=== PATIENT | male | born 1965 | race Two or more races ===

== ENCOUNTER 2019-06-09 00:01 | Inpatient (IN) | payer OTHER ==
[~2019-06-09] VITALS: Ht 170.2 cm; Wt 80.7 kg
--- NOTE | 2019-06-09 00:15 | NUR ---
MS KITCHEN SUPERVISOR NOTES Patient came to unit from [facility] for GI bleed. Patient is alert, oriented x 4. Breathing even and unlabored. Not in any distress, on room air. Patient has RAC g#18, intact and patent. Skin is intact. Patient denies smoking and recreational drug use, and drinks occasionally. Oriented to call light, placed within easy reach. Bed in low, locked position. Belongings checked by TIFFANY Mcnamara. Will continue to monitor accordingly
[2019-06-09] MEDS ORDERED: CETI-102 PO (00:27)
[2019-06-09] MEDS ORDERED: FLUT9.9S NS (00:27)
[2019-06-09 00:30] VITALS: BP 143/101
[2019-06-09] MEDS ORDERED: FERR325T23 PO (01:02)
[2019-06-09] MEDS ORDERED: DOCU-141 PO (01:02)
[2019-06-09] MEDS ORDERED: PSYL3.4P6 PO (01:02)
--- NOTE | 2019-06-09 02:47 | NUR ---
RN NOTES Diet order received. Patient for clear liquids. Order noted and carried out
[2019-06-09] MEDS ORDERED: Z GUARD REMEDY 2 OZ OINT TP PRN (03:00)
[2019-06-09] MEDS ORDERED: MORPHINE SULFATE INJ 2 MG/ML DISP.SYRIN IV PRN (03:00)
[2019-06-09] MEDS ORDERED: ONDANSETRON HCL/PF 4 MG/2 ML VIAL IVP PRN (03:00)
[2019-06-09] MEDS: IV NS 0.9% 1,000 ML IV PRN ×2 (03:00→16:01)
[2019-06-09] MEDS ORDERED: ZOLPIDEM TARTRATE 5 MG TABLET PO PRN (03:00)
[2019-06-09] MEDS: ACETAMINOPHEN 325 MG TABLET PO PRN ×2 (03:04→20:07)
--- NOTE | 2019-06-09 03:05 | NUR ---
RN NOTES Patient c/o mild headache. Tylenol 650mg given as ordered.
[2019-06-09 04:00] VITALS: BP 103/69
--- NOTE | 2019-06-09 06:33 | NUR ---
MS RN CLOSING NOTES Patient still sleeping in bed, easy to arouse. Breathing even and unlabored. Not in any distress, on room air. Peripheral IV infusing at 75mL/hr. All needs attended. No acute changes overnight. Safety measures in place; call light within reach, bed in low, locked position. Will endorse KOMAL to oncoming RN
[2019-06-09 06:56] LABS: BASOPHILS # (AUTO) 0.1 /CMM (0.0-0.2); BASOPHILS % (AUTO) 0.9 % (0.0-2.0); EOSINOPHILS % (AUTO) 1.6 % (0.0-6.0); HEMATOCRIT 29 % (39-51); HEMOGLOBIN 9.2 g/dL (13.5-17.5); LYMPHOCYTES # (AUTO) 1.4 /CMM (0.8-4.8); LYMPHOCYTES % (AUTO) 20.8 % (20.0-44.0); MEAN CORPUSCULAR HGB CONC 32 g/dl (31.0-36.0); MEAN CORPUSCULAR VOLUME 68 fL (80-96); MONOCYTES # (AUTO) 0.7 /CMM (0.1-1.30); MONOCYTES % (AUTO) 11.2 % (2.0-12.0); NEUTROPHILS # (AUTO) 4.3 /CMM (1.8-8.9); NEUTROPHILS % (AUTO) 65.5 % (43.0-81.0); PLATELET COUNT (AUTO) 391 /CMM (150-450); RED BLOOD CELL COUNT(AUTO) 4.25 MIL/uL (4.5-6.0); WHITE BLOOD COUNT (AUTO) 6.5 K/uL (4.3-11.0)
[2019-06-09 07:08] LABS: ALBUMIN 3.3 g/dL (3.4-5.0); BILIRUBIN,TOTAL 1.2 mg/dL (0.2-1.0); CALCIUM, SERUM 8.4 mg/dL (8.5-10.1); CREATININE 0.9 mg/dL (0.6-1.3); PHOSPHORUS 2.2 mg/dL (2.5-4.9); POTASSIUM 3.2 mmol/L (3.5-5.1); TOTAL PROTEIN, SERUM 6.7 g/dL (6.4-8.2)
[2019-06-09 07:13] LABS: THYROID STIMULATING HORMONE 1.301 uIU/mL (0.358-3.74)
--- NOTE | 2019-06-09 07:15 | NUR ---
MS RN NOTES PATIENT IN BED ALERT ORIENTED X 4. NO ACUTE DISTRESS NOTED. BREATHING UNLABORED. NO SOB NOTED. IV ACCESS PATENT AND INTACT, NO REDNESS, NO SWELLING NOTED. SAFETY MEASURES IN PLACE, CALL LIGHT WITHIN REACH. WILL CONTINUE TO MONITOR ACCORDINGLY.
[2019-06-09 08:00] VITALS: BP 120/83
[2019-06-09] MEDS: NEXIUM 40 MG VIAL IV SCH ×2 (08:59→20:07)
[2019-06-09] MEDS ORDERED: PANTOPRAZOLE 40 MG VIAL IV SCH (09:00)
[2019-06-09] MEDS ORDERED: NEUTRA PHOS 1 POWD.PACKET NG ONE (11:00)
[2019-06-09] MEDS: POTASSIUM CHLORIDE 20 MEQ TAB.PRT.SR PO SCH ×2 (11:25→12:38)
[2019-06-09 16:00] VITALS: BP 129/80
--- NOTE | 2019-06-09 19:00 | NUR ---
MS RN NOTES PATIENT IN BED ALERT ORIENTED X 4. NO ACUTE DISTRESS NOTED. BREATHING UNLABORED. NO SOB NOTED. IV ACCESS PATENT AND INTACT, NO REDNESS, NO SWELLING NOTED. DUE MEDICAITONS GIVEN, NO ASE NOTED. NEEDS ATTENDED AND ANTICIPATED. SAFETY MEASURES IN PLACE, CALL LIGHT WITHIN REACH. WILL ENDORSE TO NIGHT NURSE FOR CONTINUITY OF CARE.
--- NOTE | 2019-06-09 19:30 | NUR ---
RN INITIAL NOTES: RECEIVED REPORT FROM GUERRERO TRENT. PT IN BED, AWAKE, A/O X4, ON RA RESPIRATIONS EVEN AND UNLABORED. PT C/O IV ACCESS HURTING, NOTED ITS RED, STOPPED IV AND WILL RESTART A NEW ONE. DISCUSSED PLAN OF CARE TO PT. PER REPORT, PT WAS SEEN BY DR LEDEZMA WITH ORDERS FOR CLEAR LIQUID DIET, AND NO PLAN FOR PROCEDURE/SX AT THIS TIME, BUT WILL MONITOR PT AND WILL SEE HIM AGAIN TOMORROW. SAFETY PRECAUTIONS FOR FALL INITIATED, CALL LIGHT IN REACH, WILL CONTINUE MONITORING PT.
[2019-06-09 20:00] VITALS: BP 138/98
--- NOTE | 2019-06-09 20:00 | NUR ---
rn notes: restarted new iv access on left fa using g 22, good blood return noted, proper label attached with transparent dressing. connected back to ivf
--- NOTE | 2019-06-09 20:07 | NUR ---
prn tylenol: requested by pt for c/o head ache and mild back pain, prn tylenol 650 mg tab po administered at this time, will continue to monitor and reassess
--- NOTE | 2019-06-09 22:22 | NUR ---
Patient lives at home with his . He is ambulatory and independent with adl's. Denies having DME or homehealth. His pcp is affiliated with [facility]. Family will provide ride when discharge. Denies dc planning needs at this time. Addendum: 06/09/19 at 2222 by DIANNE KELLOGG RN Amended: Links added.
--- NOTE | 2019-06-10 00:50 | NUR ---
rn notes: pt woke up c/o leg cramps, pt requested for ice water, also provided with orange and cranberry juice
[2019-06-10] MEDS: IV NS 0.9% 1,000 ML IV PRN (03:39)
--- NOTE | 2019-06-10 06:48 | NUR ---
rn closing notes: pt in bed, awake, denies any pain or discomfort this time, no active bleeding noted throughout the shift. iv access remains patent and flushing well infusing with ns at 75ml/hr. iv site free from any s/s of iv infiltration. tolerated clear liquid diet well. vs remains stable, needs attended. safety precautions for fall remains engaged, call light in reach, will endorse to day rn for continuity of care.
[2019-06-10 07:00] LABS: CALCIUM, SERUM 8.4 mg/dL (8.5-10.1); CREATININE 0.9 mg/dL (0.6-1.3); POTASSIUM 3.6 mmol/L (3.5-5.1)
--- NOTE | 2019-06-10 07:39 | NUR ---
MS RN OPENING NOTES PATIENT IN BED RESTING COMFORTABLY. PATIENT IN NO ACUTE DISTRESS. NO SOB NOTED. PATIENT BREATHING ON ROOM AIR SATURATING >95% SPO2. PATIENT BREATHING IS EVEN AND UNLABORED. NO FACIAL GRIMACING NOTED. PATIENT STATES NO PAIN AT THIS TIME. SAFETY PRECAUTIONS IN PLACE. PATIENT BED IS LOCKED AND IN LOWEST POSITION. CALL LIGHT WITHIN REACH. WILL CONTINUE TO MONITOR.
[2019-06-10 08:00] VITALS: BP 127/84
[2019-06-10 09:17] LABS: BASOPHILS % (AUTO) 0.7 % (0.0-2.0); EOSINOPHILS % (AUTO) 2.5 % (0.0-6.0); HEMATOCRIT 31 % (39-51); HEMOGLOBIN 9.5 g/dL (13.5-17.5); LYMPHOCYTES # (AUTO) 1.3 /CMM (0.8-4.8); LYMPHOCYTES % (AUTO) 29.6 % (20.0-44.0); MEAN CORPUSCULAR HGB CONC 31 g/dl (31.0-36.0); MEAN CORPUSCULAR VOLUME 69 fL (80-96); MONOCYTES # (AUTO) 0.6 /CMM (0.1-1.30); MONOCYTES % (AUTO) 14.1 % (2.0-12.0); NEUTROPHILS # (AUTO) 2.3 /CMM (1.8-8.9); NEUTROPHILS % (AUTO) 53.1 % (43.0-81.0); PLATELET COUNT (AUTO) 375 /CMM (150-450); WHITE BLOOD COUNT (AUTO) 4.4 K/uL (4.3-11.0)
[2019-06-10] MEDS: NEXIUM 40 MG VIAL IV SCH ×2 (09:40→20:14)
[2019-06-10 16:00] VITALS: BP 110/65
--- NOTE | 2019-06-10 18:38 | NUR ---
MS RN CLOSING NOTE PATIENT IN BED RESTING COMFORTABLY, BREATHING ON ROOM AIR. PATIENT FAMILY AT THE BEDSIDE. PATIENT STATES NO PAIN AT THIS TIME. PATIENT BREATHING IS EVEN AND UNLABORED. PATIENT IN NO ACUTE DISTRESS. NO SOB NOTED. ALL NURSING NEEDS MET. PATIENT KEPT CLEAN AND DRY THROUGHOUT SHIFT. SAFETY PRECAUTIONS IN PLACE. PATIENT BED IS LOCKED AND IN LOWEST POSITION. CALL LIGHT WITHIN REACH. WILL ENDORSE CARE TO PM SHIFT FOR KOMAL.
--- NOTE | 2019-06-10 19:10 | NUR ---
RN INITIAL NOTES; RECEIVED REPORT FROM CARMEL TRENT. MET WITH PT, A/O X4, ON RA, DENIES ANY PAIN OR DISCOMFORT AT THIS TIME. PER REPORT PT OKAY TO EAT RIGHT NOW WITH REGULAR FOOD/DIET AND WILL BE BACK ON CLEAR LIQUIDS IN AM PER DR RICHARDS. PT FOR EGD AND COLONOSCOPY ON MONDAY 06/11, C/O DR LEDEZMA. ALL CONSENT SIGNED BY PATIENT. BOWEL PREP TO START TOMORROW AM. DISCUSSED PLAN OF CARE TO PT. SAFETY PRECAUTIONS FOR FALL INITIATED, CALL LIGHT IN REACH, WILL CONTINUE MONITORING PT.
--- NOTE | 2019-06-10 19:55 | NUR ---
RN NOTES: PT'S CAME, BROUGHT DINNER FOR THE PT.
[2019-06-10 20:00] VITALS: BP 139/89
[2019-06-10 20:10] VITALS: BP 139/87
--- NOTE | 2019-06-11 06:42 | NUR ---
RN CLOSING NOTES: PT IN SLEEPING. IV ACCESS REMAINS PATENT AND FLUSHING WELLL, ON HL. RESPIRATIONS EVEN AND UNLABORED, NO FACIAL GRIMACE NOTED. PT BACK ON CLEAR LIQUID DIET TODAY. WILL START ON BOWEL PREP TODAY AT 0800AM. VS REMAINS STABLE, NEEDS ATTENDED. SAFETY PRECAUTIONS FOR FALL REMAINS ENGAGED, CALL LIGHT IN REACH, WILL ENDORSE TO DAY RN FOR CONTINUITY OF CARE.
--- NOTE | 2019-06-11 07:30 | NUR ---
MS RN OPENING NOTE PATIENT IN BED RESTING COMFORTABLY. PATIENT IN NO ACUTE DISTRESS. NO SOB NOTED. PATIENT BREATHING IS EVEN AND UNLABORED. PATIENT COMPLAINS OF NO PAIN AT THIS TIME. SAFETY PRECAUTIONS IN PLACE. PATIENT AWARE OF BOWEL PREPARATIONS FOR TODAY. PATIENT BED IS LOCKED AND IN LOWEST POSITION. CALL LIGHT WITHIN REACH. WILL CONTINUE TO MONITOR.
[2019-06-11 07:34] LABS: BASOPHILS # (AUTO) 0.1 /CMM (0.0-0.2); BASOPHILS % (AUTO) 1.3 % (0.0-2.0); EOSINOPHILS % (AUTO) 2.6 % (0.0-6.0); HEMATOCRIT 30 % (39-51); HEMOGLOBIN 9.5 g/dL (13.5-17.5); LYMPHOCYTES # (AUTO) 1.4 /CMM (0.8-4.8); MEAN CORPUSCULAR HGB CONC 31 g/dl (31.0-36.0); MEAN CORPUSCULAR VOLUME 69 fL (80-96); MONOCYTES # (AUTO) 0.8 /CMM (0.1-1.30); MONOCYTES % (AUTO) 14.1 % (2.0-12.0); NEUTROPHILS # (AUTO) 3.3 /CMM (1.8-8.9); PLATELET COUNT (AUTO) 378 /CMM (150-450); RED BLOOD CELL COUNT(AUTO) 4.41 MIL/uL (4.5-6.0); WHITE BLOOD COUNT (AUTO) 5.7 K/uL (4.3-11.0)
[2019-06-11 07:58] LABS: CALCIUM, SERUM 8.4 mg/dL (8.5-10.1); POTASSIUM 3.8 mmol/L (3.5-5.1)
[2019-06-11 08:00] VITALS: BP 123/76
[2019-06-11] MEDS ORDERED: NA PHOS,M-B/NA PHOS,DI-BA 1 EA ENEMA RC PRN (08:00)
[2019-06-11] MEDS ORDERED: PEG 3350/NA SULF,BICARB,CL/KCL 4,000 ML BOTTLE PO ONE (08:00)
[2019-06-11] MEDS ORDERED: MAGNESIUM CITRATE 296 ML BOTTLE PO ONE (08:00)
[2019-06-11] MEDS: NEXIUM 40 MG VIAL IV SCH ×2 (08:29→20:28)
[2019-06-11 16:00] VITALS: BP 136/90
--- NOTE | 2019-06-11 18:49 | NUR ---
MS RN CLOSING NOTE PATIENT IN BED RESTING COMFORTABLY. PATIENT IN NO ACUTE DISTRESS. NO SOB NOTED. PATIENT BREATHING IS EVEN AND UNLABORED. ALL NURSING NEEDS MET. PATIENT KEPT CLEAN AND DRY THROUGHOUT SHIFT. PATIENT ABLE TO VERBALIZE NEEDS. PATIENT NEEDS WERE ADDRESSED. PATIENT HAS BEEN THROUGH BOWEL PREPARATIONS THROUGHOUT THE DAY. PATIENT STOOL IS GETTING CLEARER. PATIENT UNDERSTANDS INSTRUCTIONS REGARDING NPO STATUS AFTER MIDNIGHT FOR EGD AND COLONOSCOPY. PATIENT VERBALLY AGREES AND COMPREHENDS INSTRUCTIONS. CONSENTS ARE SIGNED AND IN CHART. WILL ENDORSE FOR CHECKLIST TO BE COMPLETED BY CAREER AND GUIDANCE COUNSELOR NURSE. PATIENT BED IS LOCKED AND IN LOWEST POSITION. CALL LIGHT WITHIN REACH. SAFETY PRECAUTIONS IN PLACE. WILL ENDORSE CARE TO PM SHIFT FOR KOMAL.
--- NOTE | 2019-06-11 19:10 | NUR ---
RN marychuy opening notes Received Pt from morning nurse. Pt is alert and oriented X4. Pt is resting in bed comfortably. Pt's at the bedside. Respiration is normal. No SOB. No nausea or vomiting. Pt denies any pain or discomfort at this time. POC is discussed with Pt. Pt verbalized understanding. Consents for EGD and Colonoscopy were signed by Pt. IV sites at LFA#22 is clean, intact, patent and SL. Safety precautions is maintained. Instructed to call. Bed at low position, brakes locked, side rails upX2 and call light is within reach. Will continue to monitor and assists all needs.
[2019-06-11 20:00] VITALS: BP 136/79
--- NOTE | 2019-06-11 20:11 | NUR ---
RN medsurgurpreet notes Dr. Reed at the bedside. POC was discussed with Pt. Pt stated Pt still has small amount of blood in the stool. Pt still drinking Golytely prep for colonoscopy tomorrow morning. Will continue to monitor.
[2019-06-11 20:17] VITALS: BP 136/79
[2019-06-12] VITALS (7 sets, daily range): BP systolic 119–144; BP diastolic 62–85
--- NOTE | 2019-06-12 07:07 | NUR ---
RN medsurg closing notes Pt is resting in bed comfortably. Pt is alert and oriented x4. Respiration is normal. No SOB. No nausea or vomiting. Pt denies any pain or discomfort. IV sites at LFA is clean, intact, patent and SL. Pt is NPO for EGD and Colonoscopy. Bowel prep is done since last night. Kept Pt warm and comfortable. Routine meds were given as ordered. All needs met. Safety precautions is maintained. Bed at low position, brake locked, side rails upX2 and call light is within reach. Instructed to call. Will endorse to morning nurse for KOMAL.
--- NOTE | 2019-06-12 07:33 | NUR ---
MS RN OPENING NOTE RECEIVED PT IN BED, ALERT AND ORIENTED X4, DENIES CHEST PAIN, SOB, N/V, BREATHING IS EVEN AND UNLABORED ON ROOM AIR. LEFT FA #22G IS PATENT, CLEAN, DRY AND INTACT. NPO STATUS MAINTAINED PENDING EDG AND COLONOSCOPY THIS MORNING WITH . ALL NEEDS ATTENDED TO. BED IS LOCKED AND IN LOWEST POSITION, SIDE RAILS UP X2, CALL LIGHT AND POSSESSIONS WITHIN REACH.
--- NOTE | 2019-06-12 08:30 | NUR ---
MS RN NOTE REQUESTED NEXIUM IV FROM [facility] IN [facility]ARM[facility], AWAITING RECEIPT.
[2019-06-12] MEDS: NEXIUM 40 MG VIAL IV SCH (09:01)
--- NOTE | 2019-06-12 09:30 | NUR ---
MS RN NOTE PT OFF UNIT FOR EGD AND COLONOSCOPY WITH
--- NOTE | 2019-06-12 11:00 | NUR ---
MS RN NOTE PT BACK ON UNIT FROM EDG WITH . PT IS ALERT AND ORIENTED X4, DENIES CHEST PAIN, SOB, N/V, BREATHING IS EVEN AND UNLABORED ON ROOM AIR. VS MONITORING INITIATED PER PROTOCOL. POST OP ORDERS NOTED AND CARRIED OUT.
--- NOTE | 2019-06-12 12:41 | NUR ---
MS RN NOTE PER DR.TATOYAN WALKER FOR PT TO BE DISCHARGED TODAY AND FOLLOW UP OUTPATIENT.
--- NOTE | 2019-06-12 13:21 | NUR ---
MS RN NOTE PT TOLERATED FULL LIQUID TRAY WITHOUT N/V AND VOIDED INTO TOILET WITHOUT INCIDENT.
--- NOTE | 2019-06-12 13:43 | NUR ---
MS RN CLOSING NOTE PT DISCHARGED HOME IN MEDIALLY STABLE CONDITION. PT IS ALERT AND ORIENTED X4, DENIES CHEST PAIN, SOB, N/V, BREATHING IS EVEN AND UNLABORED ON ROOM AIR, NO ACUTE DISTRESS NOTED AT THIS TIME. LEFT FA AND RIGHT HAND PERIPHERAL IVS REMOVED WITH CATHETER TIP INTACT. DISCHARGE PAPERWORK AND EDUCATION PROVIDED PER PROTOCOL. PT AND AT THE BEDSIDE BOTH VERBALIZED UNDERSTANDING AND AGREEMENT, PT STATED HE WILL FOLLOW UP OUTPATIENT TO ADDRESS HEMORRHOIDS PER RECOMMENDATIONS WITH HIS OWN GI AND HAS NO FURTHER NEEDS AT THIS TIME. THE NURSE STRETCHING PRESS OPERATOR ACCOMPANIED THE PT TO THE MAIN LOBBY WITHOUT INCIDENT.
== END 2019-06-12 13:43 | disposition home or self-care (01) | DRG 241 ==
LOC: MED 00:01
PROVIDERS: ADMIT Internal Medicine; ATTEND Internal Medicine
PROC: 0DB78ZX Excision of Stomach, Pylorus, Via Natural or Artificial Opening Endoscopic, Diagnostic (ICD-10-PCS; principal; 2019-06-12)
PROC: 0DJD8ZZ Inspection of Lower Intestinal Tract, Via Natural or Artificial Opening Endoscopic (ICD-10-PCS; principal; 2019-06-12)
DX: K26.0 Acute duodenal ulcer with hemorrhage (principal); E43 Unspecified severe protein-calorie malnutrition; D64.9 Anemia, unspecified; E87.6 Hypokalemia; K21.9 Gastro-esophageal reflux disease without esophagitis; K57.90 Diverticulosis of intestine, part unspecified, without perforation or abscess without bleeding; E83.39 Other disorders of phosphorus metabolism; K64.8 Other hemorrhoids; K44.9 Diaphragmatic hernia without obstruction or gangrene; K29.80 Duodenitis without bleeding; K29.70 Gastritis, unspecified, without bleeding; K21.0 Gastro-esophageal reflux disease with esophagitis
CPT/HCPCS: 36415; 80048-TC; 80053-TC; 80061-TC; 83540-TC; 83735-TC; 84100-TC; 84443-TC; 85025-TC; 86850-TC; 87081-TC; 88305-TC; 88313-TC; 88342; C9113; G0378; J2704; J3490; J7030

== ENCOUNTER 2020-08-30 12:40 | Emergency (ER) | payer OTHER ==
[~2020-08-30] VITALS: Ht 170.2 cm; Wt 81.2 kg
[~2020-08-30 12:40] MED LIST: CETI-90 PO; DOCU-141 PO; FERR325T23 PO; FLUT9.9S NS; PSYL3.4P6 PO
--- NOTE | 2020-08-30 12:55 | NUR ---
PT came to ER with L sided chest pain r/t Lue sudden onset x 20mins. high b/p x 2 weeks. pt states feeling more of a pressure on chest. no diaphoresis. no SOB. awaiting for MD elaine
--- NOTE | 2020-08-30 13:00 | NUR ---
iv line established. blood drawn adn sent to lab
[2020-08-30] MEDS ORDERED: AMLODIPINE BESYLATE 5 MG TABLET ONE (13:05)
[2020-08-30] MEDS: AMLODIPINE BESYLATE 5 MG TABLET PO ONE (13:07)
[2020-08-30 13:15] LABS: BASOPHILS # (AUTO) 0.1 /CMM (0.0-0.2); BASOPHILS % (AUTO) 2.2 % (0.0-2.0); EOSINOPHILS % (AUTO) 1.9 % (0.0-6.0); HEMATOCRIT 44 % (39-51); HEMOGLOBIN 13.5 g/dL (13.5-17.5); LYMPHOCYTES # (AUTO) 0.8 /CMM (0.8-4.8); LYMPHOCYTES % (AUTO) 17.5 % (20.0-44.0); MEAN CORPUSCULAR HGB CONC 31 g/dl (31.0-36.0); MEAN CORPUSCULAR VOLUME 79 fL (80-96); MONOCYTES # (AUTO) 0.4 /CMM (0.1-1.30); NEUTROPHILS # (AUTO) 3.3 /CMM (1.8-8.9); NEUTROPHILS % (AUTO) 69.4 % (43.0-81.0); PLATELET COUNT (AUTO) 255 /CMM (150-450); RED BLOOD CELL COUNT(AUTO) 5.53 MIL/uL (4.5-6.0); WHITE BLOOD COUNT (AUTO) 4.8 K/uL (4.3-11.0)
[2020-08-30 13:16] LABS: CALCIUM, SERUM 8.9 mg/dL (8.5-10.1); CARBON DIOXIDE 28 mmol/L (21-32); CHLORIDE 103 mmol/L (98-107); CREATININE 0.9 mg/dL (0.6-1.3); GLUCOSE 99 mg/dL (74-106); POTASSIUM 3.4 mmol/L (3.5-5.1); SODIUM SERUM 139 mmol/L (136-145); UREA NITROGEN, BLOOD 15 mg/dL (7-18)
[2020-08-30] MEDS ORDERED: FAMO20TA8 PO (13:46)
--- NOTE | 2020-08-30 13:57 | NUR ---
Cleared by the ER MD for DC home. The patient was instructed to follow up with PCP in one week IV removed. Catheter intact and site benign. Pressure and 4x4 applied to site. No bleeding noted.
[2020-08-30 14:00] VITALS: BP 145/78
== END 2020-08-30 14:01 | disposition home or self-care (01) ==
LOC: ER 12:45
DX: I10 Essential (primary) hypertension (principal); D64.9 Anemia, unspecified; R07.89 Other chest pain; Z79.899 Other long term (current) drug therapy
CPT/HCPCS: 36415; 71045-TC; 80048-TC; 84484-TC; 85025-TC